=== PATIENT | female | born 1950 | race Caucasian/White ===

== ENCOUNTER 2023-03-30 15:33 | Outpatient (CLI) | payer MEDICARE, BC, SELFPAY | END 2023-03-30 15:34 | disposition home or self-care (01) | PROVIDERS: PCP Family Medicine; Visit Provider Family Medicine | DX: E55.9 Vitamin D deficiency, unspecified (principal); M81.0 Age-related osteoporosis without current pathological fracture; E78.5 Hyperlipidemia, unspecified | CPT/HCPCS: 80053; 80061; 82306 ==

== ENCOUNTER 2023-04-12 14:50 | Outpatient (CLI) | payer MEDICARE, BC, SELFPAY ==
--- NOTE | 2023-04-12 15:00 | CRLHL7_ITS ---
For Patients: As a result of the Century Cures Act, medical imaging exams and procedure reports are released immediately into your electronic medical record. You may view this report before your referring provider. If you have questions, please contact your health care provider. INDICATION: Lung cancer screening. History of smoking. High risk patient with greater than pack-year smoking history. TECHNIQUE: Low-dose lung cancer screening non-contrast CT chest. Dose reduction techniques were used. COMPARISON: None. FINDINGS: NODULES: Nodular density in the right lung apex is similar measuring 1.3 cm. Additional nodular density in the medial left upper lobe is also similar measuring 7 millimeters. Pleural parenchymal scarring in both lung apices is unchanged. Peripheral nodular densities associated with right upper pleura noted and similar. LUNGS AND PLEURA: COPD/emphysema. Linear subsegmental scarring in both lower lobes and within the superior segment of the right lower lobe. MEDIASTINUM: Vascular calcifications are present. No enlarged lymph nodes. CORONARY ARTERY CALCIFICATION: None. LIMITED UPPER ABDOMEN: Unremarkable. Mild chronic wedging of upper thoracic vertebral bodies. MUSCULOSKELETAL: Normal. IMPRESSION: Stable bilateral upper lobe nodules since 2011. LUNG-RADS CATEGORY: 2: Benign. RADIOLOGIST RECOMMENDATION: Continue annual screening with low-dose CT chest in 12 months. Please note that all CT scans at this facility use dose modulation, iterative reconstruction, and/or weight-based dosing when appropriate to reduce radiation dose to as low as reasonably achievable. Dictated by Roshan Pierre MD @ 04/13/2023 11:22:02 AM (Electronically Signed)
== END 2023-04-12 14:51 | disposition home or self-care (01) ==
LOC: CT 14:51
PROVIDERS: PCP Family Medicine; Visit Provider Family Medicine
DX: Z12.2 Encounter for screening for malignant neoplasm of respiratory organs (principal); R91.8 Other nonspecific abnormal finding of lung field
CPT/HCPCS: 71271

== ENCOUNTER 2023-05-01 14:00 | Outpatient (CLI) | payer MEDICARE, BC, SELFPAY | END 2023-05-01 14:01 | disposition home or self-care (01) | LOC: NFLDREF 05-04 18:46 | PROVIDERS: PCP Family Medicine; Referring Provider Family Medicine; Visit Provider Family Medicine | DX: E83.52 Hypercalcemia (principal) | CPT/HCPCS: 80048 ==

== ENCOUNTER 2023-06-18 14:02 | Outpatient (CLI) | payer MEDICARE, BC, SELFPAY ==
--- NOTE | 2023-06-18 14:00 | CRLHL7_ITS ---
For Patients: As a result of the Century Cures Act, medical imaging exams and procedure reports are released immediately into your electronic medical record. You may view this report before your referring provider. If you have questions, please contact your health care provider. BILATERAL SCREENING MAMMOGRAM WITH COMPUTER-AIDED DETECTION AND TOMOSYNTHESIS TECHNIQUE: CC and MLO views were obtained. These mammographic images have been obtained using full-field digital technique. These mammographic images were interpreted with the benefit of computer-aided detection. Breast Tomosynthesis was used in this interpretation. COMPARISON FILM: 12/14/21, 08/23/20, 12/17/18. FINDINGS: The breasts are heterogeneously dense, which may obscure small masses IMPRESSION: There is no radiographic evidence for malignancy. ASSESSMENT: BI-RADS Category 1: Negative RECOMMENDATION: Routine screening mammogram in 1 year. A lay language report of this examination will be provided to the patient. Roshan Pierre M.D. Diagnostic Radiologist [email or web address] ARIS/Dictated by: Roshan Pierre MD @ 06/19/2023 11:27:00 AM (Electronically Signed)
--- OUTSIDE RECORDS SUMMARY | 2023-06-18 14:04 | XMS_ITS | Continuity of Care Document ---
Author Name Unknown Organization [facility] Address [address] [place] [address] Phone Care Team Providers Care Time Clock Inspector Name Role Phone Fran Slater MD Unavailable Unavailable Medications Medication Instructions Dosage Effective Dates (start - stop) Status Comments methotrexate sodium 2.5 mg Tab take 5 Tablet (12.5MG) by oral route every week 12.5 MG - No Longer Active prednisone 5 mg Tab take 15mg x 2 weeks, then take 10mg daily - No Longer Active Procedures Procedure Date Office/Outpatient Visit, Est Advance Directives Directive Yes / No Effective Date File Name Resuscitation Not Answered N/A N/A Life Support Not Answered N/A N/A Intubation Not Answered N/A N/A Antibiotics Not Answered N/A N/A IV Fluid Support Not Answered N/A N/A Tube Feed Not Answered N/A N/A Other Directive N/A N/A WARNING:The information contained in this section is historical and is provided for information only and does not constitute a legal document or any assurance that the information is still accurate. Please verify the information with the zambrano of the legal document before using it for clinical purposes. Encounters Encounter Description Practice Location Reason(s) For Visit Diagnoses Date Provider Providers Copied on Encounter [facility], [address], [place], [address], [place] tel:[phone] [facility], No Information 2 Bryon Peters. [facility] [address], [place], [address], [place]. tel:[phone] [facility], [address], [place], [address], [place] tel:[phone] [facility], No Information 2 Bryon Peters. [facility] [address], [place], [address], [place]. tel:[phone] Office/Outpa tient Visit, Est [facility], [address], [place], [address], [place] tel:[phone] [facility], Psoriatic Arthritis (chief complaint) Psoriatic arthropathyTh erapeutic Drug MonitoringDis order of bone and cartilage, unspecified 2 Bryon Peters. [facility] [address], [place], [address], [place]. tel:[phone] [facility], [facility], [place], [address], [place] tel:[phone] [facility], No Information 2 Bryon Peters. [facility] [address], [place], [address], [place]. tel:[phone] Family History Family Member Type Diagnosis Age At Onset No Information Payers Payer name Insurance type Covered green party ID Authorhyaley atkinson(s) [facility] [id number] Social History Type Description Quantity Date Captured Comments Alcohol Use Details beer 1 beer daily Caffeine Use Details Unknown Tobacco Use Status No Information Smoking Status Current every day smoker 2011 Sex Female Chief Complaint And Reason For Visit No Information Reason For Referral Reason For Referral No Information Plan Of Treatment Date Type Action Status Goal Tobacco cessation counseling completed History Of Present Illness Encounter Date Complaint History Of Prese nt Illness No Information Functional Status Date Functional Assessmen t No Information Instructions Date Instruction Additional Infor mation No Information Assessments Type Assessment Date No Information Patient Care Teams Name Effective Dates (start - stop) Status Members No Information
== END 2023-06-18 14:03 | disposition home or self-care (01) ==
LOC: MAMMO 14:03
PROVIDERS: PCP Family Medicine; Visit Provider Family Medicine
DX: Z12.31 Encounter for screening mammogram for malignant neoplasm of breast (principal); R92.2 Inconclusive mammogram
CPT/HCPCS: 77063; 77067

== ENCOUNTER 2023-07-08 12:38 | Emergency (ER) | payer MEDICARE, BC, SELFPAY ==
[2023-07-08 13:05] VITALS: BP 168/86; PULSE 102; RESP 16; TEMP 36.6; O2SAT 96; BMI 26.5
--- NOTE | 2023-07-08 13:41 | ED.GENADULT ---
HPI - General Adult General Date Seen: 07/08/23 Chief complaint: Cough Stated complaint: COVID+ Time Seen by Provider: 07/08/23 13:22 Source: patient Mode of arrival: ambulatory Limitations: no limitations History of Present Illness HPI narrative: Patient is a 73-year-old woman here with diagnosis of COVID. She says she started to feel poorly yesterday with runny nose and congestion, ear pain, cough. Did a test this morning and it was positive. She says she told her sister that she had COVID in her sister said that she should get on Paxlovid right away. Medical history notable for splenectomy. She does not take any chronic medications. Does not smoke. Denies shortness of breath or chest pain. No fevers. Related Data Previous Rx's Medication Instructions Recorded amoxicillin 875 mg tablet 875 mg PO BID #20 tabs 07/08/23 nirmatrelvir 300 mg (150 mg See Rx Instructions PO .COMPLEX 07/08/23 x2)-ritonavir 100 mg tablet,dose #30 ea pack (Paxlovid) Allergies Allergy/AdvReac Type Severity Reaction Status Date / Time No Known Drug Allergies Allergy Verified 03/30/23 14:59 Review of Systems Status of ROS: Reports: 10 or more systems reviewed and unremarkable except as noted in History and below [facility] Medical History Vitamin D deficiency ?E55.9 - Vitamin D deficiency, unspecified (ICD-10) Osteonecrosis of right hip ?M87.9 - Osteonecrosis, unspecified (ICD-10) Low back pain ?M54.50 - Low back pain, unspecified (ICD-10) Dyspepsia (~2012) ?R10.13 - Epigastric pain (ICD-10) Chronic hip pain ?M25.559 - Pain in unspecified hip (ICD-10) ?G89.29 - Other chronic pain (ICD-10) Surgical History Status post total replacement of hip (2015) ?Z96.649 - Presence of unspecified artificial hip joint (ICD-10) Status post tonsillectomy ?Z90.89 - Acquired absence of other organs (ICD-10) History of splenectomy (1973) ?Z90.81 - Acquired absence of spleen (ICD-10) History of section (1982) ?Z98.891 - History of uterine scar from previous surgery (ICD-10) History of bilateral cataract extraction (10/2020) ?Z98.41 - Cataract extraction status, right eye (ICD-10) ?Z98.42 - Cataract extraction status, left eye (ICD-10) History of arthroscopy of right knee ?Z98.890 - Other specified postprocedural states (ICD-10) History of appendectomy ?Z90.49 - Acquired absence of other specified parts of digestive tract (ICD-10) Family History Maternal Grandfather Diabetes Myocardial infarction Aunt Breast cancer, Onset Age: 70 Paternal Grandfather Myocardial infarction Family/Other Rheumatoid arteritis H/O heart artery stent, Onset Age: 56 Mother Osteoporosis Sister Fibromyalgia Social History Narrative: , lives on [address], retired [employer] , 1 son Non-smoker quit 2010, 25 pack years, Social drinker 1 /day, Exercises regularly-active lifestyle walks, gardening, taking care of animals What is your current living situation?: I presently have a place to live Problems where you live: declined to answer In the past 12 months, utilities in danger of being shut off: no In past 12 months, lack of transportation kept you from medical appts, meetings, work, or getting things needed for daily living: no In the past 12 mos, have been you worried that your food would run out before you had money to buy more?: never true In the past 12 mos, the food you bought just didn't last and you didn't have money to buy more?: never true Smoking Status: Former smoker Do you use any of these nicotine containing products: None Second hand tobacco smoke exposure: No How often do you have a drink containing alcohol: never How often do you have six or more drinks on one occasion: Never AUDIT-C Alcohol total score: 0 Non-prescribed substance use: denies use How often does anyone, including family, friends and others, physically hurt you: never How often does anyone, including family, friends and others, insult or talk down to you: never How often does anyone, including family, friends and others, threaten you with harm: never How often does anyone, including family, friends and others, scream or curse at you: never Little interest or pleasure in doing things: not at all Feeling down, depressed, or hopeless: not at all service: No Exam Narrative: Exam Narrative: Vital signs as noted above. In general, an alert, well-appearing woman. In easily. Head: Normocephalic, atraumatic. Eyes: Pupils are equal reactive. Extraocular movements are full. Conjunctivae are normal. ENT: Mucous membranes are moist. Throat is normal. Left TM is erythematous and dull. Right is normal. Neck: Supple without lymphadenopathy. Heart: Regular rate and rhythm. No murmur or rub. Lungs: Clear bilaterally. No increased work of breathing, crackles or wheezes Extremities: Well perfused. No edema. No calf tenderness. Pulses intact. Neurologic: Patient is alert and oriented to person and place. Speech is fluent. Face is symmetric. Moves all extremities equally. Affect: Normal. Skin: Warm and dry. Well perfused. Const: Vital Signs, click to edit/add: Vital Signs - 24 hr 07/08/23 13:05 Temperature 97.9 F Pulse Rate [Pulse Oximeter] 102 H Respiratory Rate 16 Blood Pressure [Ri ght Upper Arm] 168/86 H Pulse Oximetry 96 Oxygen Delivery Me thod Room Air Documenting provider has reviewed patient's vital signs: yes Course Course ED Course: Patient presents with positive COVID test interested in Paxlovid. She does have an otitis on the left, discussed that these are often viral and does not need specific treatment but I will send a prescription for amoxicillin to the pharmacy. Advised she can wait a day or 2 and see how the ear feels before starting that. Paxlovid prescribed. Return for worsening respiratory symptoms or other concerns. Primary care follow-up as needed. Vital Signs Vital signs: Initial Vital Signs Temperature 97.9 F 07/08/23 13:05 Temperature Source Temporal Artery Scan 07/08/23 13:05 Pulse Rate 102 H 07/08/23 13:05 Pulse Rhythm Regular 07/08/23 13:05 Respiratory Rate 16 07/08/23 13:05 Blood Pressure 168/86 H 07/08/23 13:05 Blood Pressure Mean 113 H 07/08/23 13:05 Blood Pressure Position Sitting 07/08/23 13:05 Pulse Oximetry 96 07/08/23 13:05 Oxygen Delivery Method Room Air 07/08/23 13:05 Vital Signs Temperature 97.9 F 07/08/23 13:05 Pulse Rate 102 H 07/08/23 13:05 Respiratory Rate 16 07/08/23 13:05 Blood Pressure 168/86 H 07/08/23 13:05 Pulse Oximetry 96 07/08/23 13:05 Oxygen Delivery Method Room Air 07/08/23 13:05 Temperature 97.9 F 07/08/23 13:05 Pulse Rate 102 H 07/08/23 13:05 Respiratory Rate 16 07/08/23 13:05 Blood Pressure 168/86 H 07/08/23 13:05 Pulse Oximetry 96 07/08/23 13:05 Oxygen Delivery Method Room Air 07/08/23 13:05 Discharge Plan Discharge Clinical Impression: Acute left otitis media, COVID-19 Patient Disposition: Home, Self-Care Condition: Stable Instructions: Ear Infection (ED), COVID-19 (Coronavirus Disease 2019) (ED) Additional Instructions: Paxlovid as prescribed. Antibiotic for ear infection, it is okay to wait a day or 2 before starting this as most ear infections are caused by viruses and you may not need the antibiotic. For worsening symptoms, severe shortness of breath etcetera return for re-evaluation. See primary care for other concerns. Prescriptions: New amoxicillin 875 mg tablet 875 mg PO BID Qty: 20 0RF Paxlovid 300 mg (150 mg x 2)-100 mg tablets,dose pack See Rx Instructions .ROUTE .COMPLEX Qty: 30 0RF Rx Instructions: take TWO 150 mg tablets of nirmatrelvir with ONE 100 mg tablet of ritonavir twice daily for 5 days Follow Up/Referrals: Stephanie Celestin MD [Primary Care Provider] - Stand Alone Forms: [facility] Info Instructions
== END 2023-07-08 13:42 | disposition home or self-care (01) ==
LOC: ED 13:43
PROVIDERS: Emergency Provider Emergency Medicine; PCP Family Medicine
DX: H66.92 Otitis media, unspecified, left ear (principal)
CPT/HCPCS: 99283; 99284

== ENCOUNTER 2024-04-15 12:48 | Outpatient (CLI) | payer MEDICARE, BC, SELFPAY ==
--- OUTSIDE RECORDS SUMMARY | 2024-04-01 15:54 | XMS_ITS | Continuity of Care Document ---
Author Organization [facility] Address [address] [place] [address] Phone Care Team Providers Care Senior Management Consultant Name Role Phone Fran Slater MD Unavailable [...] [address], [place], [address], [place] tel:[phone] [facility], No Information 2 Bryon Peters. [facility] [address], [place], [address], [place]. tel:[phone] [facility], [address], [place], [address], [place] tel:[phone] [facility], No Information 2 Bryon Peters. [facility] [address], [place], [address], [place]. tel:[phone] Office/Outpa tient Visit, Est [facility], [address], [place], [address], [place] tel:[phone] [facility], Psoriatic Arthritis (chief complaint) Psoriatic arthropathyTh erapeutic Drug MonitoringDis order of bone and cartilage, unspecified 2 Bryon Peters. [facility] [address], [place], [address], [place]. tel:[phone] [facility], [facility], [place], [address], [place] tel:[phone] [facility], No Information 2 Bryon Peters. [facility] [address], [place], [address], [place]. tel:[phone] Family History Family Member Type Diagnosis Age At Onset No Information Payers Payer name Insurance type Covered libertarian ID [place] atkinson(s) [facility] [id number] Social History Type Description Quantity Date Captured [...]
--- OUTSIDE RECORDS SUMMARY | 2024-04-15 12:52 | XMS_ITS | Continuity of Care Document ---
Author Organization [facility] Address [address] [place] [address] Phone Care Team Providers Care Translator Deaf Name Role Phone Fran Slater MD Unavailable [...] [address], [place], [address], [place] tel:[phone] [facility], No Information 2 Bryon Peters. [facility] [address], [place], [address], [place]. tel:[phone] [facility], [address], [place], [address], [place] tel:[phone] [facility], No Information 2 Bryon Peters. [facility] [address], [place], [address], [place]. tel:[phone] Office/Outpa tient Visit, Est [facility], [address], [place], [address], [place] tel:[phone] [facility], Psoriatic Arthritis (chief complaint) Psoriatic arthropathyTh erapeutic Drug MonitoringDis order of bone and cartilage, unspecified 2 Bryon Peters. [facility] [address], [place], [address], [place]. tel:[phone] [facility], [facility], [place], [address], [place] tel:[phone] [facility], No Information 2 Bryon Peters. [facility] [address], [place], [address], [place]. tel:[phone] Family History Family Member Type Diagnosis Age At Onset No Information Payers Payer name Insurance type Covered libertarian ID [place] atkinson(s) [facility] [id number] Social History Type Description Quantity Date Captured [...]
--- NOTE | 2024-04-15 13:00 | CRLHL7_ITS ---
For Patients: As a result of the Cures Act, medical imaging exams and procedure reports are released immediately into your electronic medical record. You may view this report before your referring provider. If you have questions, please contact your health care provider. INDICATION: Lung cancer screening. History of smoking. High risk patient with greater than 35 pack-year smoking history. TECHNIQUE: Low-dose lung cancer screening non-contrast CT chest. Dose reduction techniques were used. COMPARISON: 04/12/2023, 07/05/2012 FINDINGS: NODULES: Stable bilateral apical nodules. No new nodules. LUNGS AND PLEURA: Scarring within both lung apices. Linear subsegmental scarring in both lower lobes. MEDIASTINUM: Atherosclerotic changes. No adenopathy. CORONARY ARTERY CALCIFICATION: None. LIMITED UPPER ABDOMEN: Unremarkable. MUSCULOSKELETAL: Chronic wedging of upper thoracic vertebral bodies. IMPRESSION: Stable bilateral nodules. No significant change. LUNG-RADS CATEGORY: 2: Benign. RADIOLOGIST RECOMMENDATION: Continue annual screening with low-dose CT chest in 12 months. Please note that all CT scans at this facility use dose modulation, iterative reconstruction, and/or weight-based dosing when appropriate to reduce radiation dose to as low as reasonably achievable. Dictated by Roshan Pierre MD @ 04/16/2024 10:46:26 AM (Electronically Signed)
== END 2024-04-15 12:49 | disposition home or self-care (01) ==
LOC: CT 12:50
PROVIDERS: PCP Family Medicine; Visit Provider Family Medicine
DX: Z12.2 Encounter for screening for malignant neoplasm of respiratory organs (principal); R91.8 Other nonspecific abnormal finding of lung field; F17.210 Nicotine dependence, cigarettes, uncomplicated
CPT/HCPCS: 71271

== ENCOUNTER 2024-04-18 09:01 | Outpatient (CLI) | payer MEDICARE, BC, SELFPAY ==
--- OUTSIDE RECORDS SUMMARY | 2024-04-19 14:37 | XMS_ITS | Continuity of Care Document ---
Author Organization [facility] Address [address] [place] [address] Phone Care Team Providers Care Playground Director Name Role Phone Fran Slater MD Unavailable [...] [address], [place], [address], [place] tel:[phone] [facility], No Information 2 Bryon Peters. [facility] [address], [place], [address], [place]. tel:[phone] [facility], [address], [place], [address], [place] tel:[phone] [facility], No Information 2 Bryon Peters. [facility] [address], [place], [address], [place]. tel:[phone] Office/Outpa tient Visit, Est [facility], [address], [place], [address], [place] tel:[phone] [facility], Psoriatic Arthritis (chief complaint) Psoriatic arthropathyTh erapeutic Drug MonitoringDis order of bone and cartilage, unspecified 2 Bryon Peters. [facility] [address], [place], [address], [place]. tel:[phone] [facility], [facility], [place], [address], [place] tel:[phone] [facility], No Information 2 Bryon Peters. [facility] [address], [place], [address], [place]. tel:[phone] Family History Family Member Type Diagnosis Age At Onset No Information Payers Payer name Insurance type Covered constitution party ID [place] atkinson(s) [facility] [id number] Social History Type Description Quantity Date Captured [...]
== END 2024-04-18 09:02 | disposition home or self-care (01) ==
LOC: NFLDREF 04-19 14:35
PROVIDERS: PCP Family Medicine; Referring Provider Family Medicine; Visit Provider Family Medicine
DX: M81.0 Age-related osteoporosis without current pathological fracture (principal); E55.9 Vitamin D deficiency, unspecified; Z13.6 Encounter for screening for cardiovascular disorders
CPT/HCPCS: 80053; 80061; 82306

== ENCOUNTER 2024-06-19 13:11 | Outpatient (CLI) | payer MEDICARE, BC, SELFPAY ==
--- NOTE | 2024-06-19 13:20 | CRLHL7_ITS ---
For Patients: As a result of the Century Cures Act, medical imaging exams and procedure reports are released immediately into your electronic medical record. You may view this report before your referring provider. If you have questions, please contact your health care provider. BILATERAL SCREENING MAMMOGRAM WITH COMPUTER-AIDED DETECTION AND TOMOSYNTHESIS TECHNIQUE: CC and MLO views were obtained. These mammographic images have been obtained using full-field digital technique. These mammographic images were interpreted with the benefit of computer-aided detection. Breast Tomosynthesis was used in this interpretation. COMPARISON FILM: 06/18/23, 12/14/21, 08/23/20. FINDINGS: The breasts are heterogeneously dense, which may obscure small masses. IMPRESSION: There is no radiographic evidence for malignancy. ASSESSMENT: BI-RADS Category 1: Negative RECOMMENDATION: Routine screening mammogram in 1 year. A lay language report of this examination will be provided to the patient. Roshan Pierre M.D. Diagnostic Radiologist [email or web address] SP/Dictated by: Roshan Pierre MD @ 06/20/2024 10:17:00 AM (Electronically Signed)
--- NOTE | 2024-06-19 14:00 | CRLHL7_ITS ---
For Patients: As a result of the Century Cures Act, medical imaging exams and procedure reports are released immediately into your electronic medical record. You may view this report before your referring provider. If you have questions, please contact your health care provider. DXA BONE MINERAL DENSITY STUDY Reason for exam: Age-related osteoporosis without current pathologic fracture. Current height (in): 60. Weight (lb): 150. Menopause age: 62. Ethnicity: White. 1. Have you had a previous hip or vertebral fracture? Yes. 2. Have you had any fractures during your adult life which did not result from significant trauma (e.g., auto accident)? Yes. 3. Did either of your parents have a hip fracture? No. 4. Do you smoke? No. 5. Have you ever taken Glucocorticoids? No. 6. Do you have rheumatoid arthritis? No. 7. Do you have secondary osteoporosis? No. 8. Do you drink 3 or more alcoholic drinks per day? No. 9. Are you being treated for osteoporosis? No. 10. Have you ever taken any of the following medications: Actonel, Evista, Fosamax, Miacalcin, Reclast, Boniva, Forteo, HRT (i.e., estrogen/hormone therapy), Protelos, Prolia, Vitamin D, Calcium, other ??? please specify. ANSWER: Yes, Fosamax (i.e., alendronate), vitamin D, and calcium. 11. Do you have any of the following medical conditions: Anorexia or bulimia, asthma or emphysema, end stage renal disease, hyperparathyroidism, any seizure disorders, cancer, inflammatory bowel diseases, hysterectomy, other ??? please specify. ANSWER: Yes, right hip replacement. 12. What was your maximum height (inches)? 62. 13. Do you perform weight bearing exercise regularly? Yes. 14. Do you regularly consume dairy products? Yes. 15. Do you drink caffeinated beverages? Yes. 16. At what age did your period start? 17. 17. Are you premenopausal? No. 18. How many full-term pregnancies have you had? 1. 19. Have you ever missed your period for more than 6 months in a row (not including or menopause)? No. TECHNIQUE: Bone mineral density study was performed using the M2G. FINDINGS: The results of the study expressed as bone mineral density (BMD) are as follows: Lumbar spine L1 to L3: BMD: 0.867 g/cm2. T-score: -1.4. Z-score: 0.8 Neck Left: BMD: 0.510 g/cm2. T-score: -3.1. Z-score: -1.1 Total Left: BMD: 0.714 g/cm2. T-score: -1.9. Z-score: -0.2 Radius Left 33%: BMD: 0.687 g/cm2. T-score: -0.1. Z-score: 2.2 IMPRESSION: Osteoporosis. *Comparison exams done prior to 12/2019 were performed on different unit, [facility]. COMPARISON: Compared with scan of 11/16/2021, the bone mineral density has decreased by 3.7 percent at the spine and decreased by 1.4 percent at the left hip. Compared with scan of 08/26/2020, the bone mineral density has increased by 2.6 percent at the spine and decreased by 0.1 percent at the left hip. BENJAMIN GARCIA M.D. Transcribed: 8:58 a.m. [email or web address] by: Benjamin Garcia MD @ 06/20/2024 8:42:00 AM (Electronically Signed)
== END 2024-06-19 13:12 | disposition home or self-care (01) ==
LOC: MAMMO 13:12
PROVIDERS: PCP Family Medicine; Visit Provider Family Medicine
DX: Z12.31 Encounter for screening mammogram for malignant neoplasm of breast (principal); R92.333 Mammographic heterogeneous density, bilateral breasts; M81.0 Age-related osteoporosis without current pathological fracture
CPT/HCPCS: 77063; 77067; 77080

== ENCOUNTER 2024-06-24 09:52 | Outpatient (CLI) | payer MEDICARE, BC, SELFPAY ==
--- NOTE | 2024-06-24 10:53 | P.ANES_ITS ---
Anesthesia Charges Start Date/Time Anesthesia Start Date: 06/24/24 Anesthesia Start Time: 10:26 Stop Date/Time Anesthesia Stop Date: 06/24/24 Anesthesia Stop Time: 10:51 Summary Extremes of Age - Over 70 or under 1: [employer] REPRESENTATIVE
--- NOTE | 2024-06-24 11:11 | W.ANESCHARGE ---
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
== END 2024-06-24 09:53 | disposition home or self-care (01) ==
LOC: OP CLINIC 09:54
PROVIDERS: PCP Family Medicine; Visit Provider Internal Medicine
DX: Z12.11 Encounter for screening for malignant neoplasm of colon (principal); D12.0 Benign neoplasm of cecum; D12.5 Benign neoplasm of sigmoid colon
CPT/HCPCS: 00811; 45380; 88305; 99100; J2704

== ENCOUNTER 2025-04-20 13:49 | Outpatient (CLI) | payer MEDICARE, BC, SELFPAY ==
--- NOTE | 2025-04-20 14:00 | CRLHL7_ITS ---
For Patients: As a result of the Cures Act, medical imaging exams and procedure reports are released immediately into your electronic medical record. You may view this report before your referring provider. If you have questions, please contact your health care provider. INDICATION: Lung cancer screening. History of smoking. High risk patient with 35 pack-year smoking history. TECHNIQUE: Low-dose lung cancer screening non-contrast CT chest. Dose reduction techniques were used. COMPARISON: 04/15/[address] FINDINGS: NODULES: Stable biapical scarring/nodularity. No new nodules. LUNGS AND PLEURA: Normal. MEDIASTINUM: Normal. CORONARY ARTERY CALCIFICATION: None. LIMITED UPPER ABDOMEN: Normal. MUSCULOSKELETAL: Chronic right clavicle fracture deformity. Chronic upper thoracic compression fractures. IMPRESSION: 1. Negative for lung cancer screening purposes. LUNG-RADS CATEGORY 2: Benign. Continue annual screening, if eligible, with low-dose CT chest in 12 months. Please note that all CT scans at this facility use dose modulation, iterative reconstruction, and/or weight-based dosing when appropriate to reduce radiation dose to as low as reasonably achievable. Dictated by Zana White MD @ 04/21/2025 12:36:19 PM (Electronically Signed)
== END 2025-04-20 13:50 | disposition home or self-care (01) ==
LOC: CT 13:51
PROVIDERS: PCP Family Medicine; Visit Provider Family Medicine
DX: Z12.2 Encounter for screening for malignant neoplasm of respiratory organs (principal); Z87.891 Personal history of nicotine dependence
CPT/HCPCS: 71271

== ENCOUNTER 2025-06-29 10:44 | Outpatient (CLI) | payer MEDICARE, BC, SELFPAY ==
--- NOTE | 2025-06-29 10:45 | CRLHL7_ITS ---
For Patients: As a result of the Century Cures Act, medical imaging exams and procedure reports are released immediately into your electronic medical record. You may view this report before your referring provider. If you have questions, please contact your health care provider. INDICATION: BILATERAL SCREENING MAMMOGRAM, ASYMPTOMATIC 75 Y/O FEMALE COMPARISON: 06/19/2024, 06/18/2023, 12/14/2021 TECHNIQUE: Digital mammogram in CC and MLO projections including computer-aided detection (CAD) and tomosynthesis. BREAST COMPOSITION: The breasts are heterogeneously dense, which may obscure small masses. FINDINGS: No suspicious findings. ASSESSMENT: BI-RADS 1 Negative RECOMMENDATION: Annual screening mammogram. A lay language report of this examination will be provided to the patient. Dictated by: Maddie Yin MD @ 06/30/2025 11:29:10 (Electronically Signed)
== END 2025-06-29 10:45 | disposition home or self-care (01) ==
LOC: MAMMO 10:45
PROVIDERS: PCP Family Medicine; Visit Provider Family Medicine
DX: Z12.31 Encounter for screening mammogram for malignant neoplasm of breast (principal); R92.333 Mammographic heterogeneous density, bilateral breasts
CPT/HCPCS: 77063; 77067